=== PATIENT | male | born 1955 | race Caucasian/White ===

== ENCOUNTER 2020-05-07 18:59 | Emergency (ER) | payer OTHER ==
[2020-05-07 20:01] LABS: HEMOGLOBIN 12.5 gm/dl (14.0-17.5); RED BLOOD COUNT 3.83 M/UL (4.20-5.50); WHITE BLOOD COUNT 13.7 K/UL (4.5-11.0)
[2020-05-08 03:42] LABS: BUN/CREATININE RATIO 31 (0-10)
== END 2020-05-08 10:48 | disposition short-term general hospital (02) ==
LOC: ER1 18:59
PROVIDERS: Emergency Medicine
DX: T51.0X2A Toxic effect of ethanol, intentional self-harm, initial encounter (principal); E87.2 Acidosis; E87.3 Alkalosis; J44.9 Chronic obstructive pulmonary disease, unspecified; Z20.822 Contact with and (suspected) exposure to COVID-19
CPT/HCPCS: 36600; 51702; 71045; 80053; 80307; 81001; 82009; 82803; 83605; 83690; 83930; 85025; 93005; 96365; 96375; 96376; 99285; G0480; J1451; J2060; J3360; U0002

== ENCOUNTER 2020-06-11 09:15 | Emergency (ER) | payer OTHER | END 2020-06-11 13:50 | disposition home or self-care (01) | LOC: ER1 09:15 | DX: S70.02XA Contusion of left hip, initial encounter (principal); F10.129 Alcohol abuse with intoxication, unspecified; F17.210 Nicotine dependence, cigarettes, uncomplicated; W19.XXXA Unspecified fall, initial encounter; Y93.89 Activity, other specified; Y92.59 Other trade areas as the place of occurrence of the external cause | CPT/HCPCS: 73502; 96365; 96366; 99283; J3411; J3475; J7030 ==